=== PATIENT | female | born 1930 | race Caucasian/White ===

== ENCOUNTER 2020-06-21 07:42 | Inpatient (IN) | payer MEDICARE, OTHER ==
[2020-06-21] VITALS (28 sets, daily range): BP systolic 57–140; BP diastolic 32–121
[~2020-06-21] VITALS: Ht 154.9 cm; Wt 78.5 kg
--- NOTE | 2020-06-21 07:42 | NUR ---
PT BIBRA 839 FROM HOME C/O VOMITING OF BLOOD AND SOB 80% ON RA. PT IS AAOX4, HOOKED TO O2 AT 15LPM VIA NB AND MAIL MANAGER, KEPT RESTED AND COMFORTABLE. WILL CONTINUE TO MONITOR.
--- NOTE | 2020-06-21 07:49 | NUR ---
SEEN AND EXAMINED BY .
[2020-06-21] MEDS ORDERED: PANTOPRAZOLE 80 MG in IV NS 0.9% 500 ML IV ONE (08:00)
[2020-06-21] MEDS ORDERED: PANTOPRAZOLE 80 MG in IV NS 0.9% 100 ML IV ONE (08:00)
[2020-06-21] MEDS ORDERED: OCTREOTIDE 50 MCG/ML AMPUL IV ONE (08:00)
[2020-06-21] MEDS ORDERED: IV NS 0.9% 500 ML BAG IV ONE (08:00)
[2020-06-21] MEDS ORDERED: OCTREOTIDE 1,250 MCG in IV NS 0.9% 250 ML IV ONE (08:00)
--- NOTE | 2020-06-21 08:00 | NUR ---
IV LINE ESTABLISHED.
[2020-06-21] MEDS ORDERED: OCTREOTIDE 100 MCG/ML VIAL ONE (08:06)
[2020-06-21 08:21] LABS: BASOPHILS # (AUTO) 0.1 /CMM (0.0-0.2); BASOPHILS % (AUTO) 0.3 % (0.0-2.0); HEMATOCRIT 24 % (33-45); HEMOGLOBIN 7.4 g/dL (11.5-14.8); MEAN CORPUSCULAR HGB CONC 31 g/dl (31.0-36.0); MEAN CORPUSCULAR VOLUME 96 fL (82-100); NEUTROPHILS # (AUTO) 16.7 /CMM (1.8-8.9); NEUTROPHILS % (AUTO) 84.7 % (43.0-81.0); PLATELET COUNT (AUTO) 202 /CMM (150-450); RED BLOOD CELL COUNT(AUTO) 2.51 MIL/uL (4.0-5.2); WHITE BLOOD COUNT (AUTO) 19.7 K/uL (4.3-11.0)
[2020-06-21 08:35] LABS: CALCIUM, SERUM 11.2 mg/dL (8.5-10.1); CARBON DIOXIDE 20 mmol/L (21-32); CHLORIDE 106 mmol/L (98-107); CREATININE 1.8 mg/dL (0.6-1.3); GLUCOSE 214 mg/dL (74-106); POTASSIUM 4.5 mmol/L (3.5-5.1); SODIUM SERUM 142 mmol/L (136-145)
[2020-06-21 08:38] LABS: UREA NITROGEN, BLOOD 98 mg/dL (7-18)
[2020-06-21 08:46] LABS: ALANINE AMINOTRANSFERASE 16 U/L (12-78); ALBUMIN 3.2 g/dL (3.4-5.0); ALKALINE PHOSPHATASE 36 U/L (46-116); ASPARTATE AMINOTRANSFERASE 14 U/L (15-37); BILIRUBIN,DIRECT 0.1 mg/dL (0.0-0.2); BILIRUBIN,TOTAL 0.3 mg/dL (0.2-1.0); LIPASE 65 U/L (73-393); TOTAL PROTEIN, SERUM 6.3 g/dL (6.4-8.2)
--- NOTE | 2020-06-21 08:50 | NUR ---
PT IS WHEELED TO CT SCAN VIA [facility].
--- NOTE | 2020-06-21 08:57 | NUR ---
LAB CALLED LACTIC 9.1
--- NOTE | 2020-06-21 09:19 | NUR ---
LAB CALLED PT COVID ANTIGEN NEGATIVE (-) CHARGE NURSE TASHA ARGUETA.
[2020-06-21] MEDS ORDERED: DORZ10DR11 EACHEYE (09:38)
[2020-06-21] MEDS ORDERED: METO50TA16 PO (09:38)
[2020-06-21] MEDS ORDERED: FERR325T24 PO (09:38)
[2020-06-21] MEDS ORDERED: ENAL10TA39 PO (09:38)
[2020-06-21] MEDS ORDERED: BRIM5DRO EACHEYE (09:38)
[2020-06-21] MEDS ORDERED: PANT40TA49 PO (09:38)
[2020-06-21] MEDS ORDERED: FURO40TA5 PO (09:38)
[2020-06-21] MEDS ORDERED: BIMA2.5D5 EACHEYE (09:38)
[2020-06-21] MEDS ORDERED: POTA8TAB3 PO (09:38)
[2020-06-21] MEDS ORDERED: MELO-107 PO (09:38)
[2020-06-21] MEDS ORDERED: FOLI0.4T2 PO (09:38)
--- NOTE | 2020-06-21 09:55 | NUR ---
MOVE SHEET SUBMITTED AND CALLED FOR ICU BED.
[2020-06-21] MEDS ORDERED: IV D5/ 0.9% NACL 1,000 ML IV PRN (10:00)
--- NOTE | 2020-06-21 10:06 | NUR ---
[facility] CALLED COPY HOLDER PAGED.
[2020-06-21 10:18] LABS: ABG BASE EXCESS -7.3 mmol/L; ABG OXYGEN SATURATION 99.1 % (92.0-98.5); ABG PCO2 38.5 mmHg (35.0-45.0); ABG PO2 462.9 mmHg (75.0-100.0); AaDO2 211.6 mmHg; COHb 0.5 % (0.5-1.5); MetHb 0.7 % (0.0-1.5); O2Hb 97.9 % (94.0-97.0); SITE, ABG Right Brachial
[2020-06-21] MEDS ORDERED: ONDANSETRON HCL/PF 4 MG/2 ML VIAL ONE (10:27)
[2020-06-21] MEDS ORDERED: ONDANSETRON HCL/PF - ER 4 MG/2 ML VIAL IV ONE (10:30)
--- NOTE | 2020-06-21 10:44 | NUR ---
TECH AT BEDSIDE FOR ULTRASOUND.
--- NOTE | 2020-06-21 10:46 | NUR ---
ICU BED 255
--- NOTE | 2020-06-21 10:58 | NUR ---
[facility] CALLED AGAIN PROGRAM SCHEDULER PAGED.
--- NOTE | 2020-06-21 11:11 | NUR ---
REPORT GIVEN TO BETO HENLEY OF ICU FOR NINA. WITH ONGOING SANDOSTATIN DRIP AND PRBC INFUSING WELL.
[2020-06-21] MEDS ORDERED: PANTOPRAZOLE 40 MG TABLET.DR PO SCH (11:30)
[2020-06-21] MEDS ORDERED: MAGNESIUM HYDROXIDE 30 ML UDC PO PRN (12:00)
[2020-06-21] MEDS ORDERED: ZOLPIDEM TARTRATE 5 MG TABLET PO PRN (12:00)
[2020-06-21] MEDS ORDERED: ACETAMINOPHEN 325 MG TABLET PO PRN (12:00)
[2020-06-21] MEDS ORDERED: HYDROCODONE/APAP 5/325MG TABLET PO PRN (12:00)
[2020-06-21] MEDS ORDERED: ONDANSETRON HCL/PF 4 MG/2 ML VIAL IVP PRN (12:00)
[2020-06-21 12:57] LABS: HEMOGLOBIN 8.6 g/dL (11.5-14.8)
[2020-06-21] MEDS ORDERED: ZOSYN IVPB 3.375 G in IV D5W 50ml IV ONE (13:00)
[2020-06-21] MEDS: CIPROFLOXACIN IV RTU 400 MG in PREMIX 1 EA IV SCH (13:47)
[2020-06-21] MEDS: IV NS 0.9% 1,000 ML IV PRN (13:48)
[2020-06-21 16:45] LABS: BASOPHILS # (AUTO) 0.1 /CMM (0.0-0.2); BASOPHILS % (AUTO) 0.3 % (0.0-2.0); EOSINOPHILS % (AUTO) 0.1 % (0.0-6.0); HEMATOCRIT 25 % (33-45); HEMOGLOBIN 7.9 g/dL (11.5-14.8); LYMPHOCYTES # (AUTO) 1.8 /CMM (0.8-4.8); LYMPHOCYTES % (AUTO) 8.6 % (20.0-44.0); MEAN CORPUSCULAR HGB CONC 31 g/dl (31.0-36.0); MEAN CORPUSCULAR VOLUME 92 fL (82-100); MONOCYTES # (AUTO) 1.5 /CMM (0.1-1.30); MONOCYTES % (AUTO) 7.3 % (2.0-12.0); NEUTROPHILS # (AUTO) 17.5 /CMM (1.8-8.9); NEUTROPHILS % (AUTO) 83.7 % (43.0-81.0); PLATELET COUNT (AUTO) 161 /CMM (150-450); RED BLOOD CELL COUNT(AUTO) 2.76 MIL/uL (4.0-5.2); WHITE BLOOD COUNT (AUTO) 20.9 K/uL (4.3-11.0)
[2020-06-21 17:02] LABS: BAND % (MANUAL) 1 % (0.0-5.0); LYMPHOCYTES % (MANUAL) 11 % (16-48); MONOCYTES % (MANUAL) 5 % (0-11.0); NEUTROPHILS % (MANUAL) 83 (42-76)
--- NOTE | 2020-06-21 18:20 | NUR ---
RN NOTE PATIENT TRANSFERRED TO [facility] ROOM 108. REPORT CALLED TO KENNA FOR NINA
--- NOTE | 2020-06-21 19:50 | NUR ---
PACKING AND STAMPING MACHINE OPERATOR OVF NOTES, RECEIVED PATIENT IN BED A/O X3 ABLE TO VERBALIZED NEEDS AND [id number], ON 02 5LPM VIA NC, >95%, NO S/S OF ACUTE RESP DISTRESS, NO SOB, SINUS TACHY ON TELE MONITOR WITH HR 110S, SAMUEL MID LINE IN PLACED, AND LEFT AC PIV 20G IN PLACE, SANDOSTATIN INFUSING AT 10ML/H, AND 0.9%NS AT 75ML/H INFUSING WELL AND PATIENT TOLERATED WELL, ONE UNIT OF PRBC TO INFUSE, AWAITING FOR HG RESULT, WILL CONTINUE TO MONITOR CLOSELY, ALL NEEDS PROVIDED, CALL LIGHT W/I REACH, S/R OF BED X2 UP.
[2020-06-21 20:56] LABS: HEMOGLOBIN 6.4 g/dL (11.5-14.8)
[2020-06-21] MEDS ORDERED: PANTOPRAZOLE 40 MG VIAL IV SCH (21:00)
[2020-06-21] MEDS: METRONIDAZOLE 500MG/ NS 100ML 500 MG in PREMIX 1 EA IV SCH (21:00)
[2020-06-21] MEDS ORDERED: BIMATOPROST 2.5 ML DROPS OP SCH (22:00)
[2020-06-21] MEDS: PANTOPRAZOLE 40 MG VIAL IV SCH (22:01)
[2020-06-21] MEDS: LATANOPROST EYE DROP 0.005% 2.5 ML BOTTLE EACHEYE SCH (23:07)
[2020-06-22] VITALS (18 sets, daily range): BP systolic 92–139; BP diastolic 45–83
[2020-06-22] MEDS ORDERED: PIPERACILLIN /TAZOBACTAM 3.375 G in IV D5W 100 ML IV SCH (01:00)
[2020-06-22 05:25] LABS: BASOPHILS # (AUTO) 0.1 /CMM (0.0-0.2); BASOPHILS % (AUTO) 0.6 % (0.0-2.0); EOSINOPHILS % (AUTO) 0.4 % (0.0-6.0); HEMATOCRIT 24 % (33-45); LYMPHOCYTES # (AUTO) 1.5 /CMM (0.8-4.8); MEAN CORPUSCULAR HGB CONC 33 g/dl (31.0-36.0); MEAN CORPUSCULAR VOLUME 94 fL (82-100); MONOCYTES # (AUTO) 1.7 /CMM (0.1-1.30); MONOCYTES % (AUTO) 11.6 % (2.0-12.0); NEUTROPHILS # (AUTO) 11.2 /CMM (1.8-8.9); NEUTROPHILS % (AUTO) 77.4 % (43.0-81.0); PLATELET COUNT (AUTO) 136 /CMM (150-450); WHITE BLOOD COUNT (AUTO) 14.5 K/uL (4.3-11.0)
[2020-06-22] MEDS: METRONIDAZOLE 500MG/ NS 100ML 500 MG in PREMIX 1 EA IV SCH ×3 (05:27→20:21)
[2020-06-22 05:39] LABS: ALANINE AMINOTRANSFERASE 16 U/L (12-78); ALBUMIN 2.8 g/dL (3.4-5.0); ALKALINE PHOSPHATASE 31 U/L (46-116); ASPARTATE AMINOTRANSFERASE 19 U/L (15-37); BILIRUBIN,TOTAL 0.3 mg/dL (0.2-1.0); CALCIUM, SERUM 9.2 mg/dL (8.5-10.1); CARBON DIOXIDE 21 mmol/L (21-32); CHLORIDE 111 mmol/L (98-107); GLUCOSE 130 mg/dL (74-106); MAGNESIUM 1.5 mg/dL (1.8-2.4); PHOSPHORUS 3.4 mg/dL (2.5-4.9); POTASSIUM 4.8 mmol/L (3.5-5.1); SODIUM SERUM 143 mmol/L (136-145); TOTAL PROTEIN, SERUM 5.4 g/dL (6.4-8.2)
[2020-06-22 05:41] LABS: CHOLESTEROL 128 mg/dL (<200); HDL CHOLESTEROL 35 mg/dL (40-60); LDL 46 mg/dL (0-99); TRIGLYCERIDES 291 mg/dL (30-150)
[2020-06-22 05:55] LABS: UREA NITROGEN, BLOOD 108 mg/dL (7-18)
--- NOTE | 2020-06-22 07:03 | NUR ---
ORDINARY SEAMAN OVF CLOSING NOTES, PATIENT IN BED A/O X3, ON 02 5LPM VIA NC, >95%, NO SOB/ OR S/S OF ACUTE RESP DISTRESS, SINUS TACHY ON TELE MONITOR THROUGHOUT THE NIGHT, WITH HR 110S-120S, SAMUEL MID LINE IN PLACED, SANDOSTATIN INFUSING AT 10ML/H, AND 0.9%NS AT 75ML/H INFUSING WELL AND PATIENT TOLERATED WELL, ONE UNIT OF PRBC INFUSED LAST NIGHT AND H&H THIS MORNING 8.0/24 , NO EPISODES OF EMESIS DURING THE NIGHT, NO ACTIVE BLEEDING NOTED, PATIENT REFUSED NG TUBE, ALL NEEDS PROVIDED, CALL LIGHT W/I REACH, S/R OF BED X2 UP, WILL ENDORSE CONTINUITY OF CARE TO ONCOMING NURSE.
--- NOTE | 2020-06-22 07:43 | NUR ---
RN OPENING NOTE RECEIVED PATIENT IN BED WITH HOB AT [facility]. PATIENT IS AOX3. SKIN IS INTACT. BEDPAN IS AT BEDSIDE. SAMUEL MIDLINE IS IN PLACE, PATENT, AND INTACT. PATIENT IS CURRENTLY ON 4L SIMPLE MASK. BED IS LOCKED IN THE LOWEST POSITION, CALL MURILLO WITHIN REACH, AND ALL HOSPITAL SAFETY PRECAUTIONS ARE BEING FOLLOWED. WILL CONTINUE TO MONITOR THROUGHOUT SHIFT.
[2020-06-22] MEDS: PANTOPRAZOLE 40 MG VIAL IV SCH ×2 (08:48→22:52)
[2020-06-22 09:00] LABS: HEMOGLOBIN 8.9 g/dL (11.5-14.8)
[2020-06-22] MEDS ORDERED: Magnesium 1GM/D5W 100ML PREMIX 100 ML IV SCH (09:30)
[2020-06-22] MEDS: BRIMONIDINE TARTRATE OPHT SOLN 5 ML BOTTLE EACHEYE SCH ×2 (09:47→16:10)
[2020-06-22] MEDS: TIMOLOL MAL/DORZOLAM HCL OPHTH 10 ML BOTTLE EACHEYE SCH ×2 (09:48→16:10)
[2020-06-22] MEDS ORDERED: ANESTHESIA TRAY IN PYXIS 1 EA TRAY MC ONE (09:51)
[2020-06-22] MEDS ORDERED: MIDAZOLAM HCL 2 MG/2ML VIAL ONE (09:57)
--- NOTE | 2020-06-22 10:00 | NUR ---
MEMBER OF PARLIAMENT OVERFLOW PATIENT TAKEN TO OR FOR THE EGD. CONSENT SIGNED FOR THE SURGERY, ANASTHESIA, BLOOD TRANSFUSION, AND PREOP CHECK LIST COMPLETED. PATIENT TAKEN IN BED. VITALS STABLE AND DOCUMENTED. PROVIDED PATIENT CHART. NOTIFIED DAUGHTER THAT PATIENT IS GOING TO THE OPERATING ROOM.
--- NOTE | 2020-06-22 11:05 | NUR ---
PATIENT RETURNED FROM OR IN BED, NO S/S OF DISTRESS, VITALS ARE HR 95, O2 SAT 100%, RR 17, BP 110/63, TEMP 97.7 F. PATIENT TOLERATED WELL, A/O X4, VOICES SHE IS TIRED. CONNECTED TO TELE AND MONITORING FOR CHANGES. ONLY ORDER IS TO DISCONTINUE NPO AND CONTINUE PREEXISTING DIET.
--- NOTE | 2020-06-22 13:00 | NUR ---
RN TELE1 PATIENT CHECKED ON AND HELPED TO USE BEDPAN. CLEANED PATIENT AFTER BED KIRK USE. PROVIDED PATIENT JELLO, WATER, AND JUICE IN ACCORDANCE WITH HER LIQUID DIET.
[2020-06-22] MEDS: CIPROFLOXACIN IV RTU 400 MG in PREMIX 1 EA IV SCH (13:26)
[2020-06-22] MEDS: SUCRALFATE 1 G/10 ML UDC PO SCH ×3 (13:27→22:53)
--- NOTE | 2020-06-22 16:00 | NUR ---
RN MED SURG1 GAVE REPORT TO ELIO. ENDORSED CARE TO HER. PATIENT IS IN BED, NO S/S OF DISTRESS, PATIENT SAYS SHE WANTS TO TAKE A NAP. VITALS ARE STABLE. BLOOD PRESSURE 110/62, O2 SAT 95%. HR 93.
--- NOTE | 2020-06-22 16:05 | NUR ---
MS RN NOTES RECEIVED PATIENT FOR NINA FROM NURSE EDWIN RN. PATIENT MEDICALLY STABLE.
[2020-06-22 17:58] LABS: HEMOGLOBIN 7.7 g/dL (11.5-14.8)
--- NOTE | 2020-06-22 18:43 | NUR ---
MS RN CLOSING NOTES PATIENT IN BED AT THIS TIME, AWAKE, A/O X3 AND RESTING. ON OXYGEN THERAPY 4 LPM VIA SIMPLE MASK; SOB NOTED WITH SPEECH YET PATIENT SATURATES 94% AND DOES NOT COMPLAIN OF SOB. NO COMPLAINS OF PAIN WELL. CHING MIDLINE PRESENT AND INTACT INFUSING NS @75 MLS/HR. ALL NEEDS ATTENDED. PATIENT CLEAN AND DRY. SAFETY PRECAUTIONS IN PLACE; BED IN LOW POSITION AND LOCKED, RAILS UP X2, CALL LIGHT WITHIN REACH. WILL ENDORSE TO HYDRAULIC RUBBISH COMPACTOR MECHANIC NURSE.
--- NOTE | 2020-06-22 19:45 | NUR ---
RN OPENING NOTES RECEIVED PT IN BED. AWAKE, A/O X3, PRIMARILY YAKUT SPEAKING, MINIMAL YORUBA. ABLE TO MAKE NEEDS KNOWN. PT IS ON 4L VIA SIMPLE MASK, TOLERATING WELL. SATURATION 98%. NO RESP DISTRESS OR SOB NOTED AT THIS TIME. ON TELE MONITORING SINUS TACH, BASELINE TO PT. HR OF 102 AT THIS TIME. PT HAS IV SAMUEL MIDLINE, BOTH PORTS OCCLUDED. WILL ATTEMPT TO REINSERT NEW LINE OR GET ORDER FOR NEW MIDLINE PLACED. PT DENIES PAIN AT THIS TIME. VSS AT THIS TIME. SAFETY MEASURES IN PLACE. HOB ELEVATED. SIDE RAILS UP X 3. BED IS LOCKED IN LOWEST POSITION WITH BED ALARM ON. CALL LIGHT WITHIN REACH. WILL CONT TO MONITOR.
[2020-06-22] MEDS: IV NS 0.9% 1,000 ML IV PRN (20:19)
--- NOTE | 2020-06-22 20:30 | NUR ---
MIDLINE OCCLUDED. ORDER FOR NEW MIDLINE INSERTION PLACED. CHARGE NURSE AND NURS SUP MADE AWARE.
--- NOTE | 2020-06-22 22:00 | NUR ---
RECEIVED FROM [facility] NURSE VIA BED PATIENT ALERT AND ORIENTATED SPEECH CLEAR ORIENTATED TO THE ROOM JEWELRY 2 RING 1 BRACELET 2 NECKLACES AND A WATCH PLACED IN THE SAFE BAG IN FRONT OF THE PATIENT RECEIPT GIVEN TO THE PATIENT TAKEN TO THE SAFE BOOK SIGNED
--- NOTE | 2020-06-22 22:00 | NUR ---
MIDLINE/PICC LINE NURSE AT BEDSIDE. PLACED NEW SAMUEL MIDLINE. FLUSHES WELL, GOOD BLOOD RETURN.
--- NOTE | 2020-06-22 22:44 | NUR ---
TRANSFERRED PT TO [facility] VIA ACLS PROTOCOL. PT TRANSFERRED IN STABLE CONDITION, BELONGINGS WITH PATIENT AND ACCOUNTED FOR. ALL MEDS TRANSFERRED WITH PT. DAUGHTER, KASH INFORMED OF TRANSFER. GAVE REPORT TO VIANEY FOR CONTINUATION OF CARE.
[2020-06-22] MEDS: LATANOPROST EYE DROP 0.005% 2.5 ML BOTTLE EACHEYE SCH (22:53)
[2020-06-23] VITALS (10 sets, daily range): BP systolic 92–119; BP diastolic 53–83
[2020-06-23] MEDS: METRONIDAZOLE 500MG/ NS 100ML 500 MG in PREMIX 1 EA IV SCH ×3 (04:37→23:22)
--- NOTE | 2020-06-23 05:47 | NUR ---
FROM [facility] AT 10PM LAST NIGHT ALERT AND ORIENTATED X4 JEWELRY PLACED IN THE SAFE RECEIPT TAPED TO HER JOGGER SUIT N A PLASTIC BAG ON THE BEDSIDE STAND SLEPT WELL URINE YELLOW GUMS PINK NO INDICATION OF BLEEDING
--- NOTE | 2020-06-23 07:41 | NUR ---
MS RN OPENING NOTES RECEIVED PATIENT IN BED, ASLEEP. PATIENT ON OXYGEN THERAPY AT 4 LPM VIA SIMPLE MASK; BREATHING EVEN AND UNLABORED AT THIS TIME. NO S/S OF PAIN SUCH FACIAL GRIMACING, GUARDING OR MOANING. SAMUEL MIDLINE RUNNING NS AT 75 MLS/HR. SAFETY PRECAUTIONS IN PLACE; BED IN LOW POSITION AND LOCKED, RAILS UP X2, CALL LIGHT WITHIN REACH. WILL CONTINUE TO MONITOR PATIENT.
[2020-06-23] MEDS: BRIMONIDINE TARTRATE OPHT SOLN 5 ML BOTTLE EACHEYE SCH ×2 (08:00→17:50)
[2020-06-23] MEDS: PANTOPRAZOLE 40 MG VIAL IV SCH ×2 (08:00→23:23)
[2020-06-23] MEDS: TIMOLOL MAL/DORZOLAM HCL OPHTH 10 ML BOTTLE EACHEYE SCH ×2 (08:00→17:50)
[2020-06-23] MEDS: SUCRALFATE 1 G/10 ML UDC PO SCH ×4 (08:00→23:23)
[2020-06-23 08:04] LABS: CALCIUM, SERUM 8.7 mg/dL (8.5-10.1); CARBON DIOXIDE 24 mmol/L (21-32); CHLORIDE 114 mmol/L (98-107); CREATININE 1.5 mg/dL (0.6-1.3); GLUCOSE 114 mg/dL (74-106); MAGNESIUM 1.6 mg/dL (1.8-2.4); PHOSPHORUS 2.7 mg/dL (2.5-4.9); SODIUM SERUM 147 mmol/L (136-145); UREA NITROGEN, BLOOD 63 mg/dL (7-18)
[2020-06-23 08:09] LABS: BASOPHILS # (AUTO) 0.1 /CMM (0.0-0.2); BASOPHILS % (AUTO) 0.8 % (0.0-2.0); EOSINOPHILS % (AUTO) 3.1 % (0.0-6.0); HEMATOCRIT 23 % (33-45); HEMOGLOBIN 7.6 g/dL (11.5-14.8); LYMPHOCYTES % (AUTO) 9.5 % (20.0-44.0); MEAN CORPUSCULAR HGB CONC 33 g/dl (31.0-36.0); MEAN CORPUSCULAR VOLUME 96 fL (82-100); MONOCYTES # (AUTO) 1.1 /CMM (0.1-1.30); MONOCYTES % (AUTO) 10.8 % (2.0-12.0); NEUTROPHILS # (AUTO) 7.7 /CMM (1.8-8.9); NEUTROPHILS % (AUTO) 75.8 % (43.0-81.0); PLATELET COUNT (AUTO) 137 /CMM (150-450); RED BLOOD CELL COUNT(AUTO) 2.39 MIL/uL (4.0-5.2); WHITE BLOOD COUNT (AUTO) 10.2 K/uL (4.3-11.0)
[2020-06-23] MEDS: Magnesium 1GM/D5W 100ML PREMIX 100 ML IV SCH ×2 (10:23→11:22)
[2020-06-23] MEDS: CIPROFLOXACIN IV RTU 400 MG in PREMIX 1 EA IV SCH (14:08)
--- NOTE | 2020-06-23 16:19 | NUR ---
MS RN NOTES STARTED 1 UNIT PRBC TRANSFUSION. VITAL SIGNS WNL. WILL CONTINUE TO MONITOR.
--- NOTE | 2020-06-23 19:27 | NUR ---
MS RN CLOSING NOTES PATIENT REMAINS IN BED, AWAKE, A/O X4. PATIENT ON OXYGEN THERAPY AT 4 LPM VIA SIMPLE MASK; BREATHING EVEN AND UNLABORED DURING SHIFT; SATURATING 100%. NO COMPLAINS OF PAIN DURING THE DAY. SAMUEL MIDLINE STILL TRANSFUSING 1 UNIT PRBC; TOLERATING WELL, VS WNL; ENDORSED TO GLUE MAKER BONE NURSE. ALL NEEDS ATTENDED THROUGHOUT THE DAY. SAFETY PRECAUTIONS IN PLACE; BED IN LOW POSITION AND LOCKED, RAILS UP X2, CALL LIGHT WITHIN REACH. ENDORSED TO GLUE MAKER BONE NURSE FOR NINA.
--- NOTE | 2020-06-23 19:51 | NUR ---
CARBIDE GRINDER OPENING NOTES PATIENT A/OX3; ABLE TO MAKE NEEDS KNOWN. ON O2 4LPM VIA SIMPLE MASK; TOLERATING WELL. NO C/O PAIN OR DISCOMFORT. IV ON SAMUEL MIDLINE; PATENT AND INTACT AND FINISHED INFUSING PRBC; NO S/S OF A/R. SAFETY MEASURES ARE IN PLACE; BED IN LOWEST LOCKED POSITION, SIDE RAILS UP X 2 AND CALL LIGHT IS WITHIN REACH. WILL CONTINUE TO MONITOR PT.
--- NOTE | 2020-06-23 20:59 | NUR ---
MS RN NOTED - PRBC TRANSFUSION PATIENT COMPLETED PRBC X1 UNIT. NO S/S OF ADVERSE REACTIONS, RASHES, WHEEZING, NOR ALLERGIC REACTIONS. NO S/S OF DISTRESS.
[2020-06-23] MEDS: LATANOPROST EYE DROP 0.005% 2.5 ML BOTTLE EACHEYE SCH (22:00)
[2020-06-23] MEDS: IV 1/2NS 1000 ML 1,000 ML IV PRN (23:26)
[2020-06-24] MEDS: METRONIDAZOLE 500MG/ NS 100ML 500 MG in PREMIX 1 EA IV SCH ×2 (05:27→13:20)
[2020-06-24] MEDS: SUCRALFATE 1 G/10 ML UDC PO SCH ×2 (06:44→13:19)
[2020-06-24 08:00] VITALS: BP 100/54
--- NOTE | 2020-06-24 08:07 | NUR ---
MS RN OPENING NOTE PATIENT IS IN BED RESTING. PATIENT IS IN NO ACUTE DISTRESS. PATIENT IS ON 2L OXYGEN ON NC. NO SOB NOTED. HOB ELEVATED. SAFETY PRECAUTIONS ARE IN PLACE. BED IN THE LOWEST POSITION WITH SIDE RAILS UP. CALL LIGHT WITHIN REACH. WILL CONTINUE TO MONITOR CLOSELY THROUGHOUT THE SHIFT.
[2020-06-24 08:12] LABS: BASOPHILS # (AUTO) 0.1 /CMM (0.0-0.2); BASOPHILS % (AUTO) 0.7 % (0.0-2.0); EOSINOPHILS % (AUTO) 4.2 % (0.0-6.0); HEMATOCRIT 26 % (33-45); HEMOGLOBIN 8.5 g/dL (11.5-14.8); LYMPHOCYTES % (AUTO) 13.1 % (20.0-44.0); MEAN CORPUSCULAR HGB CONC 33 g/dl (31.0-36.0); MEAN CORPUSCULAR VOLUME 96 fL (82-100); MONOCYTES % (AUTO) 12.8 % (2.0-12.0); NEUTROPHILS # (AUTO) 5.3 /CMM (1.8-8.9); NEUTROPHILS % (AUTO) 69.2 % (43.0-81.0); PLATELET COUNT (AUTO) 130 /CMM (150-450); RED BLOOD CELL COUNT(AUTO) 2.72 MIL/uL (4.0-5.2); WHITE BLOOD COUNT (AUTO) 7.7 K/uL (4.3-11.0)
[2020-06-24 08:49] LABS: CALCIUM, SERUM 8.6 mg/dL (8.5-10.1); CREATININE 1.1 mg/dL (0.6-1.3); PHOSPHORUS 2.1 mg/dL (2.5-4.9); POTASSIUM 3.8 mmol/L (3.5-5.1)
--- NOTE | 2020-06-24 08:55 | NUR ---
BENCH MOLDER APPRENTICE CLOSING NOTES PATIENT A/OX3; ABLE TO MAKE NEEDS KNOWN. TITRATED O2 TO 2LPM VIA NASAL CANNULA; TOLERATING WELL. NO C/O PAIN OR DISCOMFORT. IV ON SAMUEL MIDLINE; PATENT AND INTACT AND INFUSING 1/2 NS @75 ML/HR. SAFETY MEASURES ARE IN PLACE; BED IN LOWEST LOCKED POSITION, SIDE RAILS UP X 2 AND CALL LIGHT IS WITHIN REACH. WILL ENDORSE NINA TO ONCOMING RN.
[2020-06-24] MEDS: PANTOPRAZOLE 40 MG VIAL IV SCH (10:06)
[2020-06-24] MEDS: BRIMONIDINE TARTRATE OPHT SOLN 5 ML BOTTLE EACHEYE SCH (10:06)
[2020-06-24] MEDS: TIMOLOL MAL/DORZOLAM HCL OPHTH 10 ML BOTTLE EACHEYE SCH (10:06)
[2020-06-24] MEDS: CIPROFLOXACIN IV RTU 400 MG in PREMIX 1 EA IV SCH (13:20)
[2020-06-24] MEDS: IV 1/2NS 1000 ML 1,000 ML IV PRN (13:20)
[2020-06-24] MEDS ORDERED: CIPR-262 PO (13:25)
[2020-06-24] MEDS ORDERED: PANT40TA2 PO (13:25)
[2020-06-24] MEDS ORDERED: SUCR1ORA6 PO (13:25)
[2020-06-24] MEDS ORDERED: METR500T PO (13:25)
[2020-06-24 16:00] VITALS: BP 121/63
[2020-06-24] MEDS ORDERED: K PHOS NEUTRAL 250 MG TABLET PO ONE (18:00)
--- NOTE | 2020-06-24 19:10 | NUR ---
MS RETAIL LOSS PREVENTION OFFICER NOTE PATIENT IS IN NO ACUTE DISTRESS. NO SOB NOTED. BREATHING IS EVEN AND UNLABORED. NO SOB NOTED. PATIENT IS MEDICALLY STABLE TO BE DISCHARGED. DC INSTRUCTIONS PROVIDED TO THE PATIENT. PATIENT VERBALIZED UNDERSTANDING. PATIENTS BELONGINGS LIST CHECKED AND SIGNED. ID BAND AND IV LINE REMOVED. MD IS AWARE OF DISCHARGE.
== END 2020-06-24 18:45 | disposition home health service (06) | DRG 871 ==
LOC: ER 07:48 → ICU 11:24 → ICUOV 18:20 → MEDSG1 06-22 13:36 → MED 06-22 22:07
PROVIDERS: ADMIT Nurse Practitioner Acute Care; ATTEND Registered Nurse
PROC: 30233N1 Transfusion of Nonautologous Red Blood Cells into Peripheral Vein, Percutaneous Approach (ICD-10-PCS; principal; 2020-06-21)
PROC: 05HY33Z Insertion of Infusion Device into Upper Vein, Percutaneous Approach (ICD-10-PCS; 2020-06-21)
PROC: 30233K1 Transfusion of Nonautologous Frozen Plasma into Peripheral Vein, Percutaneous Approach (ICD-10-PCS; 2020-06-21)
PROC: 0DB68ZX Excision of Stomach, Via Natural or Artificial Opening Endoscopic, Diagnostic (ICD-10-PCS; 2020-06-22)
PROC: 05HB33Z Insertion of Infusion Device into Right Basilic Vein, Percutaneous Approach (ICD-10-PCS; 2020-06-22)
DX: A41.9 Sepsis, unspecified organism (principal); N17.0 Acute kidney failure with tubular necrosis; I21.A1 Myocardial infarction type 2; J69.0 Pneumonitis due to inhalation of food and vomit; D62 Acute posthemorrhagic anemia; I50.20 Unspecified systolic (congestive) heart failure; E87.2 Acidosis; I42.9 Cardiomyopathy, unspecified; E87.0 Hyperosmolality and hypernatremia; K21.00 Gastro-esophageal reflux disease with esophagitis, without bleeding; K44.9 Diaphragmatic hernia without obstruction or gangrene; K29.70 Gastritis, unspecified, without bleeding; I11.0 Hypertensive heart disease with heart failure; Z88.0 Allergy status to penicillin; Z79.899 Other long term (current) drug therapy; Z20.822 Contact with and (suspected) exposure to COVID-19; E83.52 Hypercalcemia; N13.9 Obstructive and reflux uropathy, unspecified; F03.90 Unspecified dementia, unspecified severity, without behavioral disturbance, psychotic disturbance, mood disturbance, and anxiety; M06.9 Rheumatoid arthritis, unspecified; N28.1 Cyst of kidney, acquired; Z96.642 Presence of left artificial hip joint; K57.30 Diverticulosis of large intestine without perforation or abscess without bleeding; I70.0 Atherosclerosis of aorta; D25.9 Leiomyoma of uterus, unspecified
CPT/HCPCS: 36410; 36415; 36600; 71045-TC; 80048-TC; 80053-TC; 80061-TC; 80076-TC; 82310-TC; 82803-TC; 83605-TC; 83690-TC; 83735-TC; 84100-TC; 84484-TC; 85025-TC; 85027-TC; 85730-TC; 86850-TC; 87040-TC; 87081-TC; 88305-TC; 88313-TC; 88342; 93307-TC; 97112-TC; 97116-TC; 97530-TC; A4216; C9113; C9803; G0378; J0744; J2250; J2354; J2405; J2543; J3475; J3490; J7030; J7040; J7050; J7060; P9016-BL; P9017-BL; U0003

== ENCOUNTER 2020-12-03 14:48 | Outpatient (CLI) | payer MEDICARE, OTHER ==
[~2020-12-03 14:48] MED LIST: BIMA2.5D5 EACHEYE; BRIM5DRO EACHEYE; CIPR-262 PO; DORZ10DR11 EACHEYE; ENAL10TA39 PO; FERR325T24 PO; FOLI0.4T6 PO; FURO40TA5 PO; MELO-107 PO; METO50TA16 PO; METR500T PO; PANT40TA2 PO; PANT40TA49 PO; POTA8TAB3 PO; SUCR1ORA6 PO
[2020-12-03 16:23] LABS: BASOPHILS # (AUTO) 0.1 K/uL (0.0-0.2); BASOPHILS % (AUTO) 0.8 % (0.0-2.0); EOSINOPHILS % (AUTO) 1.7 % (0.0-6.0); HEMATOCRIT 39 % (33-45); HEMOGLOBIN 12.6 g/dL (11.5-14.8); LYMPHOCYTES % (AUTO) 13.5 % (20.0-44.0); MEAN CORPUSCULAR HGB CONC 32 g/dl (31.0-36.0); MEAN CORPUSCULAR VOLUME 92 fL (82-100); MONOCYTES # (AUTO) 0.5 K/uL (0.1-1.30); MONOCYTES % (AUTO) 7.6 % (2.0-12.0); NEUTROPHILS # (AUTO) 5.4 K/uL (1.8-8.9); NEUTROPHILS % (AUTO) 76.4 % (43.0-81.0); PLATELET COUNT (AUTO) 167 K/uL (150-450); RED BLOOD CELL COUNT(AUTO) 4.27 MIL/uL (4.0-5.2); WHITE BLOOD COUNT (AUTO) 7.1 K/uL (4.3-11.0)
[2020-12-03 16:31] LABS: BILIRUBIN,URINE NEGATIVE (NEGATIVE); COLOR,URINE YELLOW (YELLOW); LEUKOCYTE ESTERASE ,URINE TRACE (NEGATIVE); NITRITE, URINE NEGATIVE (NEGATIVE); PROTEIN,URINE NEGATIVE (NEGATIVE); UGLUCOSE NEGATIVE (NEGATIVE); UROBILINOGEN,URINE 0.2 EU/dL (0.2)
[2020-12-03 16:33] LABS: ALBUMIN 3.4 g/dL (3.4-5.0); BILIRUBIN,TOTAL 0.5 mg/dL (0.2-1.0); CALCIUM, SERUM 9.4 mg/dL (8.5-10.1); MAGNESIUM 2.1 mg/dL (1.8-2.4); PHOSPHORUS 3.2 mg/dL (2.5-4.9); POTASSIUM 5.4 mmol/L (3.5-5.1); TOTAL PROTEIN, SERUM 7.3 g/dL (6.4-8.2)
[2020-12-03 16:44] LABS: THYROID STIMULATING HORMONE 1.675 uIU/mL (0.358-3.74)
[2020-12-03 16:45] LABS: BACTERIA,URINE 2+ /HPF (None Seen)
[2020-12-03 21:03] LABS: URINE TOTAL PROTEIN 13.3 mg/dL (0-11.9)
[2020-12-04 10:08] LABS: *SPE A/G RATIO 1.1 (0.7-1.7); *SPE ALPHA-1-GLOBULIN 0.3 g/dL (0.0-0.4); *SPE ALPHA-2-GLOBULIN 0.9 g/dL (0.4-1.0); *SPE BETA GLOBULIN 1.2 g/dL (0.7-1.3); *SPE M-SPIKE Not Observed g/dL (Not Observed)
== END 2020-12-03 23:59 | disposition home or self-care (01) ==
LOC: MSC 14:48
PROVIDERS: ATTEND Internal Medicine
DX: Z00.01 Encounter for general adult medical examination with abnormal findings (principal); E55.9 Vitamin D deficiency, unspecified; I10 Essential (primary) hypertension; E78.5 Hyperlipidemia, unspecified; M81.0 Age-related osteoporosis without current pathological fracture; Z79.899 Other long term (current) drug therapy
CPT/HCPCS: 36415; 80053; 80061; 81001; 82043; 82306; 82570; 83036; 83735; 84100; 84155 ×2; 84165; 84443; 85025; 87086; G0463; 83970

== ENCOUNTER 2020-12-10 10:52 | Outpatient (CLI) | payer MEDICARE, OTHER | END 2020-12-10 23:59 | disposition home or self-care (01) | LOC: US 10:52 | PROVIDERS: ATTEND Internal Medicine | DX: N28.1 Cyst of kidney, acquired (principal) | CPT/HCPCS: 76770-TC ==

== ENCOUNTER 2020-12-24 14:09 | Outpatient (CLI) | payer MEDICARE, OTHER | END 2020-12-24 23:59 | disposition home or self-care (01) | LOC: MSC 14:09 | PROVIDERS: ATTEND Internal Medicine | DX: Z00.01 Encounter for general adult medical examination with abnormal findings (principal); E86.0 Dehydration; E55.9 Vitamin D deficiency, unspecified; I10 Essential (primary) hypertension; K21.9 Gastro-esophageal reflux disease without esophagitis; E78.5 Hyperlipidemia, unspecified; M81.0 Age-related osteoporosis without current pathological fracture ==